=== PATIENT | female | born 1995 | race Caucasian/White ===

== ENCOUNTER 2019-04-23 12:26 | Emergency (ER) | payer OTHER ==
[~2019-04-23] VITALS: Ht 157.5 cm; Wt 81.7 kg
[~2019-04-23 12:26] MED LIST: METO10TA3 PO; TYLENOL PRN
[2019-04-23 12:31] VITALS: BP 141/83; PULSE 68; RESP 18; Ht 157.5 cm; Wt 81.7 kg
--- NOTE | 2019-04-23 13:48 | ERD ---
ER Documentation Chief Complaint Chief Complaint nausea,vomiting and pelvic pain x 5 days, had + test HPI 23-year-old female, presents to the emergency department, complaining of 5 days with nausea, vomiting and pelvic pain. The patient had a positive test at home, she is G1, P0 with LMP 03/11, with EGA 6 weeks approximately. ROS All systems reviewed and are negative except as per history of present illness. Medications Home Meds Active Scripts Metoclopramide Hcl* (Metoclopramide Hcl*) 10 Mg Tablet, 10 MG PO BID PRN for NAUSEA AND OR VOMITING, #10 TAB Prov:PEDRITO BARNEY MD 04/23/19 Reported Medications [Tylenol Prn] No Conflict Check 10/15/09 Allergies Allergies: Coded Allergies: No Known Allergy (Verified , NONE, 04/23/19) PMhx/Soc History of Surgery: Yes (APPENDECTOMY) Hx Neurological Disorder: No Hx Respiratory Disorders: No Hx Cardiac Disorders: No Hx Miscellaneous Medical Probl: No Hx Alcohol Use: No Hx Substance Use: No Hx Tobacco Use: No FmHx Family History: No diabetes, No coronary disease Physical Exam Vitals Vital Signs Date Temp Pulse Resp B/P (MAP) Pulse Ox O2 O2 Flow FiO2 Time Delivery Rate 04/23/19 97.9 68 18 141/83 99 12:31 (102) Physical Exam Const: No acute distress Head: Atraumatic Eyes: Normal Conjunctiva ENT: Normal External Ears, Nose and Mouth. Neck: Full range of motion. No meningismus. Resp: Clear to auscultation bilaterally Cardio: Regular rate and rhythm, no murmurs Abd: Soft, non tender, non distended. Normal bowel sounds Skin: No petechiae or rashes Back: No midline or flank tenderness Ext: No cyanosis, or edema Neur: Awake and alert Psych: Normal Mood and Affect Result Diagram: 04/23/19 1413 Results 24 hrs Laboratory Tests Test 04/23/19 14:13 04/23/19 14:23 White Blood Count 9.2 10^3/ul Red Blood Count 5.26 10^6/ul Hemoglobin 14.0 g/dl Hematocrit 43.7 % Mean Corpuscular Volume 83.1 fl Mean Corpuscular Hemoglobin 26.6 pg Mean Corpuscular Hemoglobin Concent 32.0 g/dl Red Cell Distribution Width 13.3 % Platelet Count 229 10^3/UL Mean Platelet Volume 11.2 fl Immature Granulocytes % 0.200 % Neutrophils % 63.4 % Lymphocytes % 28.9 % Monocytes % 6.2 % Eosinophils % 0.8 % Basophils % 0.5 % Nucleated Red Blood Cells % 0.0 /100WBC Immature Granulocytes # 0.020 10^3/ul Neutrophils # 5.9 10^3/ul Lymphocytes # 2.7 10^3/ul Monocytes # 0.6 10^3/ul Eosinophils # 0.1 10^3/ul Basophils # 0.1 10^3/ul Nucleated Red Blood Cells # 0.0 10^3/ul Urine Color YELLOW Urine Clarity SLIGHTLY CLOUDY Urine pH 6.0 Urine Specific [place] 1.018 Urine Ketones NEGATIVE mg/dL Urine Nitrite NEGATIVE mg/dL Urine Bilirubin NEGATIVE mg/dL Urine Urobilinogen NEGATIVE mg/dL Urine Leukocyte Esterase NEGATIVE Jaziel/ul Urine Microscopic RBC 1 /HPF Urine Microscopic WBC 0 /HPF Urine Squamous Epithelial Cells FEW /HPF Urine Bacteria FEW /HPF Urine Mucus MANY /HPF Urine Hemoglobin NEGATIVE mg/dL Urine Glucose NEGATIVE mg/dL Urine Total Protein NEGATIVE mg/dl Beta HCG, Quantitative 57784.0 mIU/ml POC Beta HCG, Qualitative POSITIVE Patient: EMELYN SALGADO : 1995 Age: 23 Sex: F MR #: [id number] DOS: 04/23/19 1401 Ordering MD: PEDRITO BARNEY MD Location: [facility] Room/Bed: PROCEDURE: US OB. CLINICAL INDICATION: Pelvic pain TECHNIQUE: Transabdominal and transvaginal views of the pelvis were obtained. COMPARISON: No prior studies are available for comparison. FINDINGS: There is a single intrauterine gestation with a CRL measuring 0.3 cm, corresponding to a gestational age of 6 weeks and 0 days. The heart rate is noted at 113 bpm. There is a complex hypoechoic fluid collection adjacent to the gestational sac, measuring 1.2 x 1.5 cm, consistent with subchorionic hemorrhage. The right ovary measures 2.6 x 2.0 x 2.1 cm. The left ovary measures 1.9 x 2.3 x 2.1 cm. No ovarian or adnexal mass lesion is seen. There is no free fluid. The cervix measures 4.1 cm in length. RPTAT: AA IMPRESSION: Single live intrauterine with an estimated gestational age of 6 weeks and 0 days, based on ultrasound measurements. Small area of subchorionic hemorrhage. bradycardia may be due to the early phase of gestation. Close follow-up is recommended. Procedures/MDM Vital signs stable, Physical exam unremarkable. Differential diagnosis include but not limited to: UTI, threatening , incomplete versus complete , ectopic , physiologic implantation bleeding, molar . Physical examination and clinical presentation most likely consistent with threatening . During the ED course the patient remained hemodynamically stable and asymptomatic. Results and clinical impression discussed with patient who agrees with manage ment. The patient is stable to be treated outpatient and will be discharged home with close monitoring and follow-up in 2 days with her primary physician. Bed rest and pelvic rest recommended until further medical evaluation. The patient was instructed regarding the outcomes and the potential comp lications like severe bleeding and . If the patient presents severe bleeding or pain, she was instructed to return to the hospital immediately. Disclaimer: Inadvertent spelling and grammatical errors are likely due to EHR/dictation software use and do not reflect on the overall quality of patient care. Also, please note that the electronic time recorded on this note does not necessarily reflect the actual time of the patient encounter. Departure Diagnosis: Primary Impression: 6 weeks gestation of Condition: Stable Additional Instructions: Thank you very much for allowing us to participate in your care. Your health and safety is our top priority at [facility]. The evaluation in the emergency department has been done to rule out an acute emergency. Chronic, [id number] conditions may have not been evaluated; therefore, you need to follow up with a primary care provider in the next 48h. If symptoms persist, worsen or new symptoms develop, then patient should return to the ED immediately. Call your primary care doctor TOMORROW for an appointment during the next 2-4 days and bring all the information provided. Have prescriptions filled and follow precisely the directions on the label. If the symptoms get worse and your provider is unavailable, return to the Emergency Department immediately. PEDRITO BARNEY MD Apr 23, 2019 13:48
== END 2019-04-23 16:01 | disposition home or self-care (01) ==
LOC: FTE 12:26
DX: O26.891 Other specified pregnancy related conditions, first trimester (principal); R10.2 Pelvic and perineal pain; O21.9 Vomiting of pregnancy, unspecified; Z3A.01 Less than 8 weeks gestation of pregnancy
CPT/HCPCS: 36415; 76801; 76817; 81001; 81025; 84702; 85025; 86900; 86901; Z7502; 81003

== ENCOUNTER 2019-05-05 16:35 | Emergency (ER) | payer OTHER ==
[~2019-05-05] VITALS: Ht 157.5 cm; Wt 81.7 kg
[~2019-05-05 16:35] MED LIST changes: +ACET325T33 PO; +ONDA4TAB8 PO
[2019-05-05 17:00] VITALS: Ht 157.5 cm; Wt 81.7 kg
[2019-05-05] MEDS ORDERED: SOD CHLORIDE 0.9% 500 ML IV STA (17:52)
[2019-05-05] MEDS ORDERED: ACETAMINOPHEN 325 MG TAB PO STA (17:52)
[2019-05-05] MEDS ORDERED: ONDANSETRON 4 MG INJ IV STA (17:52)
[2019-05-05 20:02] VITALS: BP 118/60; PULSE 70; RESP 16
== END 2019-05-05 20:04 | disposition home or self-care (01) ==
LOC: FTE 16:35
DX: O21.0 Mild hyperemesis gravidarum (principal); R10.2 Pelvic and perineal pain; Z3A.08 8 weeks gestation of pregnancy
CPT/HCPCS: 76801; 76817; 81001; 81003; 85025; 86850; 86900; 86901; 87086; 96361; 96374; J2405; J7040; Z7502; Z7610

== ENCOUNTER 2019-05-11 16:24 | Emergency (ER) | payer OTHER ==
[~2019-05-11] VITALS: Ht 160 cm; Wt 82.6 kg
[2019-05-11 16:59] VITALS: Ht 160 cm; Wt 82.6 kg
[2019-05-11] MEDS ORDERED: ACETAMINOPHEN 325 MG TAB PO STA (18:01)
[2019-05-11 19:57] VITALS: BP 122/74; PULSE 54; RESP 18
== END 2019-05-11 19:57 | disposition home or self-care (01) ==
LOC: FTE 16:24
DX: O20.9 Hemorrhage in early pregnancy, unspecified (principal); Z3A.08 8 weeks gestation of pregnancy
CPT/HCPCS: 36415; 76801; 76817; 81001; 84702; 85025; 86900; 86901; Z7502; Z7610

== ENCOUNTER 2019-05-19 09:55 | Emergency (ER) | payer OTHER ==
[~2019-05-19] VITALS: Ht 157.5 cm; Wt 82.1 kg
[2019-05-19 09:59] VITALS: BP 130/65; PULSE 83; RESP 16; Ht 157.5 cm; Wt 82.1 kg
== END 2019-05-19 13:51 | disposition home or self-care (01) ==
LOC: FTE 09:55
DX: O20.0 Threatened abortion (principal); Z3A.10 10 weeks gestation of pregnancy
CPT/HCPCS: 36415; 76801; 81001; 81003; 81025; 84702; 85025; 86900; 86901; Z7502